=== PATIENT | male | born 1985 | race African-American/Black ===

== ENCOUNTER 2017-01-20 11:39 | Emergency (ER) | payer OTHER ==
--- NOTE | 2017-01-20 12:08 | ER Document Report ---
ED Medical Screen (RME) - General Chief Complaint: Altered Mental Status Stated Complaint: ALTERED MENTAL STATUS Time Seen by Provider: 01/20/17 12:05 Mode of Arrival: Ambulatory Information source: Patient Notes: 31-year-old male history of OCD who is strongly medication last night presents paranoid acting strange I have greeted and performed a rapid initial assessment of this patient. A comprehensive ED assessment and evaluation of the patient, analysis of test results and completion of the medical decision making process will be conducted by additional ED providers. PHYSICAL EXAMINATION: GENERAL: Well-appearing, well-nourished and in no acute distress. HEAD: Atraumatic, normocephalic. EYES: Pupils equal round extraocular movements intact, conjunctiva are normal. ENT: Nares patent NECK: Normal range of motion LUNGS: No respiratory distress Musculoskeletal: Normal range of motion NEUROLOGICAL: Normal speech, normal gait. PSYCH: Very anxious paranoid SKIN: Warm, Dry, normal turgor, no rashes or lesions noted. TRAVEL OUTSIDE OF THE [place] IN LAST 30 DAYS: No - Related Data Allergies/Adverse Reactions: No Known Allergies Allergy (Verified 06/19/14 01:39) Past Medical History - Social History Chew tobacco use (# tins/day): No Frequency of alcohol use: None Drug Abuse: None Pulmonary Medical History: Reports: Hx Asthma Endocrine Medical History: Denies: Hx Diabetes Mellitus Type 1, Hx Diabetes Mellitus Type 2 Renal/ Medical History: Denies: Hx Peritoneal Dialysis Skin Medical History: Reports Hx Cellulitis - From embedded toothpick into his foot Psychiatric Medical History: Reports: Hx Depression Surgical Hx: Negative - Immunizations Immunizations up to date: Yes Hx Diphtheria, Pertussis, Tetanus Vaccination: Yes Physical Exam - Vital signs Vitals: Temp Pulse Resp BP Pulse Ox 98.7 F 74 16 122/75 100 01/20/17 11:52 01/20/17 11:52 01/20/17 11:52 01/20/17 11:52 01/20/17 11:52 Course - Vital Signs Vital signs: Temp Pulse Resp BP Pulse Ox 98.7 F 74 16 122/75 100 01/20/17 11:52 01/20/17 11:52 01/20/17 11:52 01/20/17 11:52 01/20/17 11:52
--- NOTE | 2017-01-20 12:13 | ER Document Report ---
ED General - General Chief Complaint: Altered Mental Status Stated Complaint: ALTERED MENTAL STATUS Time Seen by Provider: 01/20/17 12:05 Mode of Arrival: Ambulatory Information source: Patient Notes: 31-year-old male history of OCD who was started on medication that he took last night presents with complaints of acting strange per his job. Patient is noted to be paranoid and anxious, denies any suicidal ideation TRAVEL OUTSIDE OF THE [place] IN LAST 30 DAYS: No - HPI Onset: Just prior to arrival Onset/Duration: Sudden Quality of pain: No pain Severity: Moderate Pain Level: Denies Associated symptoms: Other Exacerbated by: Denies Relieved by: Denies Similar symptoms previously: No Recently seen / treated by doctor: Yes - Related Data Allergies/Adverse Reactions: No Known Allergies Allergy (Verified 06/19/14 01:39) Home Medications: Current Home Medications Clomipramine HCl [Anafranil 25 mg Capsule] 25 mg PO DAILY 01/20/17 [History] Past Medical History - General Information source: Patient - Social History Smoking Status: Never Smoker Cigarette use (# per day): No Chew tobacco use (# tins/day): No Smoking Education Provided: No Frequency of alcohol use: None Drug Abuse: None Family History: Arthritis, CAD, DM, Hyperlipidemia, Hypertension Patient has suicidal ideation: No Patient has homicidal ideation: No Pulmonary Medical History: Reports: Hx Asthma Endocrine Medical History: Denies: Hx Diabetes Mellitus Type 1, Hx Diabetes Mellitus Type 2 Renal/ Medical History: Denies: Hx Peritoneal Dialysis Skin Medical History: Reports Hx Cellulitis - From embedded toothpick into his foot Psychiatric Medical History: Reports: Hx Depression Surgical Hx: Negative - Immunizations Immunizations up to date: Yes Hx Diphtheria, Pertussis, Tetanus Vaccination: Yes Review of Systems - Review of Systems Notes: REVIEW OF SYSTEMS: CONSTITUTIONAL : Denies fever, chills, or sweats. Denies recent illness. EENT: Denies eye, ear, throat, or mouth pain or symptoms. Denies nasal or sinus congestion or discharge. Denies throat, tongue, or mouth swelling or difficulty swallowing. CARDIOVASCULAR: Denies chest pain. Denies palpitations or racing or irregular heart beat. Denies ankle edema. RESPIRATORY: Denies cough, cold, or chest congestion. Denies shortness of breath, difficulty breathing, or wheezing. GASTROINTESTINAL: Denies abdominal pain or distention. Denies nausea, vomiting , or diarrhea. Denies blood in vomitus, stools, or per rectum. Denies black, tarry stools. Denies constipation. GENITOURINARY: Denies difficulty urinating, painful urination, burning, frequency, blood in urine, or discharge. MUSCULOSKELETAL: Denies back or neck pain or stiffness. Denies joint pain or swelling. SKIN: Denies rash, lesions or sores. HEMATOLOGIC : Denies easy bruising or bleeding. LYMPHATIC: Denies swollen, enlarged glands. NEUROLOGICAL: Denies confusion or altered mental status. Denies passing out or loss of consciousness. Denies dizziness or lightheadedness. Denies headache. Denies weakness or paralysis or loss of use of either side. Denies problems with gait or speech. Denies sensory loss, numbness, or tingling. Denies seizures. PSYCHIATRIC: admits ot paranoia ALL OTHER SYSTEMS REVIEWED AND NEGATIVE. Dictation was performed using [employer] voice recognition software PHYSICAL EXAMINATION: GENERAL: Well-appearing, well-nourished and in no acute distress. HEAD: Atraumatic, normocephalic. EYES: Pupils equal round and reactive to light, extraocular movements intact, sclera anicteric, conjunctiva are normal. ENT: Nares patent, oropharynx clear without exudates. Moist mucous membranes. NECK: Normal range of motion, supple without lymphadenopathy LUNGS: Breath sounds clear to auscultation bilaterally and equal. No wheezes rales or rhonchi. HEART: Regular rate and rhythm without murmurs ABDOMEN: Soft, nontender, nondistended abdomen. No guarding, no rebound. No masses appreciated. Musculoskeletal: Normal range of motion, no pitting or edema. No cyanosis. NEUROLOGICAL: Cranial nerves grossly intact. Normal speech, normal gait. Normal sensory, motor exams PSYCH: pt is quite paranoid, suspicious of my questions SKIN: Warm, Dry, normal turgor, no rashes or lesions noted. Physical Exam - Vital signs Vitals: Temp Pulse Resp BP Pulse Ox 98.7 F 74 16 122/75 100 01/20/17 11:52 01/20/17 11:52 01/20/17 11:52 01/20/17 11:52 01/20/17 11:52 Course - Re-evaluation Re-evalutation: 01/20/17 12:13 psychiatric workup is pending at this time 01/20/17 19:41 Patient will be kept for mental health evaluation lab work was normal Patient is medically cleared - Vital Signs Vital signs: Temp Pulse Resp BP Pulse Ox 98.0 F 70 16 120/72 100 01/20/17 13:00 01/20/17 13:00 01/20/17 13:00 01/20/17 13:00 01/20/17 13:00 - Laboratory Result Diagrams: 01/20/17 12:18 01/20/17 12:18 Laboratory results interpreted by me: 01/20/17 01/20/17 12:18 12:18 RBC 6.28 H MCV 69 L MCH 22.0 L MCHC 31.9 L RDW 16.2 H Calcium 10.5 H Total Protein 8.5 H Salicylates < 1.0 L Acetaminophen < 10 L Discharge - Discharge Clinical Impression: Paranoia Condition: Stable Disposition: PSYCH HOSP/UNIT
[2017-01-20 12:51] LABS: ABSOLUTE BASOPHILS # (AUTO) 0.1 10^3/uL (0.0-0.2); ABSOLUTE LYMPHOCYTES (AUTO) 1.1 10^3/uL (0.5-4.7); ABSOLUTE MONOCYTES (AUTO) 0.4 10^3/uL (0.1-1.4); ABSOLUTE NEUT (AUTO) 4.6 10^3/uL (1.7-8.2); BASOPHILS % (AUTO) 1.2 % (0-2); EOSINOPHILS % (AUTO) 0.8 % (0-6); HEMATOCRIT 43.3 % (37.9-51.0); HEMOGLOBIN 13.8 g/dL (13.5-17.0); HGB HCT DIFFERENCE -1.9; LYMPHOCYTES % (AUTO) 18.2 % (13-45); MEAN CORPUSCULAR HGB CONC 31.9 g/dL (32.0-36.0); MEAN CORPUSCULAR VOLUME 69 fl (80-97); MONOCYTES % (AUTO) 6.6 % (3-13); RED BLOOD COUNT 6.28 10^6/uL (4.35-5.55); RED CELL DISTRIBUTION WIDTH 16.2 % (11.5-14.0); SEGMENTED NEUTROPHILS % (AUTO) 73.2 % (42-78); WHITE BLOOD COUNT 6.3 10^3/uL (4.0-10.5)
[2017-01-20 12:59] LABS: APPEARANCE,URINE CLEAR; BILIRUBIN,URINE NEGATIVE (NEGATIVE); GLUCOSE, URINE NEGATIVE (NEGATIVE); KETONES,URINE NEGATIVE (NEGATIVE); LEUKOCYTE ESTERASE,URINE NEGATIVE (NEGATIVE); NITRITE,URINE NEGATIVE (NEGATIVE); PROTEIN,URINE NEGATIVE (NEGATIVE); URINE SPECIFIC GRAVITY 1.019; UROBILINOGEN,URINE NEGATIVE mg/dL (<2.0)
[2017-01-20 13:17] LABS: URINE BARBITURATES SCREEN NEGATIVE; URINE METHADONE SCREEN NEGATIVE; URINE OPIATES LOW NEGATIVE; URINE PHENCYCLIDINE SCREEN NEGATIVE
[2017-01-20 13:18] LABS: ALANINE AMINOTRANSFERASE 34 U/L (21-72); ALBUMIN 4.9 g/dL (3.5-5.0); ALKALINE PHOSPHATASE 55 U/L (38-126); ANION GAP 14 (5-19); ASPARTATE AMINO TRANSFERASE 28 U/L (17-59); BILIRUBIN,DIRECT 0.4 mg/dL (0.0-0.4); BILIRUBIN,TOTAL 0.6 mg/dL (0.2-1.3); BLOOD UREA NITROGEN 13 mg/dL (7-20); CALCIUM 10.5 mg/dL (8.4-10.2); CARBON DIOXIDE 25 mmol/L (22-30); CHLORIDE 102 mmol/L (98-107); CREATININE RESULT 0.98 mg/dL (0.52-1.25); GLUCOSE 96 mg/dL (75-110); POTASSIUM 4.9 mmol/L (3.6-5.0); SODIUM 140.7 mmol/L (137-145); TOTAL PROTEIN 8.5 g/dL (6.3-8.2)
[2017-01-20 13:21] LABS: ALCOHOL < 10 mg/dL (NONE DETECTED)
--- NOTE | 2017-01-20 21:34 | EKG REPORT ---
SEVERITY:- NORMAL ECG - SINUS RHYTHM : Confirmed by: Roselyn Nava 20-Jan-2017 21:33:28
--- NOTE | 2017-01-21 09:33 | ER Document Report ---
Doctor's Note Notes: 01/21/17 09:32 31-year-old male with supposedly a past medical history of obsessive-compulsive disorder who supposedly started a recent new medication and was noticed by coworkers to be acting "strange". He was supposedly paranoid and anxious. Patient denied any suicidal or homicidal ideations. Labs and vital signs are unremarkable. Patient is oriented 4. He denies any suicidal or homicidal ideations. He denies any auditory or visual hallucinations. Awaiting psychiatric consultation. 01/21/17 10:56 Psychiatry has seen and evaluated the patient. They do not believe that the patient is a risk to himself or others. Their expert opinion and to discharge the patient home at this time. Patient will stop taking the new medication, Anafranil. He has an appointment tomorrow with his psychiatric provider. Patient currently denies any auditory or visual hallucinations. He states he feels very comfortable going home at this time. He denies any suicidal or homicidal ideations. Patient will be discharged home with strict return precautions and follow-up tomorrow with the scheduled provider.
--- NOTE | 2017-01-21 10:18 | ER Document Report ---
Addendum entered and electronically signed by AIME RAHMAN LCSWA 01/21/17 10: 20: Discharge - Discharge Clinical Impression: Paranoia Adverse drug effect Qualifiers: Encounter type: initial encounter Qualified Code(s): T88.7XXA - Unspecified adverse effect of drug or medicament, initial encounter Condition: Stable Disposition: HOME, SELF-CARE Additional Instructions: Please follow up with your mental health provider, [facility], 01/22/2017 at 8:50am. AT ANY TIME, IF YOUR SYMPTOMS CHANGE SIGNIFICANTLY OR WORSEN OR YOU DEVELOP NEW SYMPTOMS, RETURN TO THE EMERGENCY DEPARTMENT IMMEDIATELY FOR RE-EVALUATION. OUR GOAL IS TO PROVIDE EXCELLENT MEDICAL CARE! WE HOPE THAT WE HAVE MET YOUR EXPECTATIONS DURING YOUR EMERGENCY DEPARTMENT VISIT AND THAT YOU FEEL YOU HAVE RECEIVED EXCELLENT CARE! Referrals: [facility] [Provider Group] - 01/22/17 8:50 am Original Note: ED Psych Disorder / Suicide - General Mode of Arrival: Ambulatory TRAVEL OUTSIDE OF THE [place] IN LAST 30 DAYS: No <AIME RAHMAN - Last Filed: 01/21/17 10:18> <SIMBA RODRIGUEZ - Last Filed: 01/21/17 10:58> - General Chief Complaint: Altered Mental Status Stated Complaint: ALTERED MENTAL STATUS Time Seen by Provider: 01/20/17 12:05 - HPI Notes: Patient presented to [facility] ED with concerns of possible mediation reaction. Patient is seen at [facility] for OCD and depression; "I have a fear of holes... well more of a disgust." Patient disclosed the onset was approximately 2-3 months ago; however, he does confirm it started after he watched something on the Internet about Trypophobia. " I am disgusted by them, but I feel the need to look it up on the internet." He was prescribed Anafranil. Patient disclosed that originally he was dizzy the day after starting. He states that the next morning he was "sick as a dog." He still attempted to go to work and stated that the symptoms seem to gradually get worse while at work including "staring into space, confusion, and paranoia." Patient disclosed he was apprised it lasted almost 48 hours after taking only 2 doses of medication. Patient states that he no longer has those feelings or physical symptoms of dizziness or illness. Patient disclosed that he does have an appointment on Tuesday at 5 PM for behavioral therapy. Patient continues state that he will never take that medication again. Patient is alert and orientated to person, place, time and circumstance. Mood is euthymic with congruent affect. Patient denies suicidal and homicidal ideation. Patient denies auditory and visual hallucinations. Delusions were absent and behaviors congruent with intact reality based presentation (i.e. organized, linear, rational thinking). Eye contact was well-maintained conversational speech was within normal rate tone and prosody. Attention and concentration were good. Intellectual abilities appear to be within the average range. Insight, judgment, impulse control appear to be good. 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 Patient does not meet IVC criteria per [place] GS 122C. Patient denies suicidal and homicidal ideation. Delusions were absent and behaviors congruent with intact reality based presentation (i.e. organized, linear, rational thinking). Patient is recommended to follow-up with his mental health outpatient provider, [facility], 01/22/2017 at 8:[address] Green was consulted on the care care and management of this patient; attending physician is in agreement with recommendations and disposition. (AIME RAHMAN) - Related Data Allergies/Adverse Reactions: No Known Allergies Allergy (Verified 06/19/14 01:39) Home Medications: Current Home Medications Clomipramine HCl [Anafranil 25 mg Capsule] 25 mg PO DAILY 01/20/17 [History] Past Medical History - General Information source: Patient - Social History Smoking Status: Never Smoker Cigarette use (# per day): No Chew tobacco use (# tins/day): No Frequency of alcohol use: None Drug Abuse: None Family History: Arthritis, CAD, DM, Hyperlipidemia, Hypertension Patient has suicidal ideation: No Patient has homicidal ideation: No Pulmonary Medical History: Reports: Hx Asthma Endocrine Medical History: Denies: Hx Diabetes Mellitus Type 1, Hx Diabetes Mellitus Type 2 Renal/ Medical History: Denies: Hx Peritoneal Dialysis Skin Medical History: Reports Hx Cellulitis - From embedded toothpick into his foot Psychiatric Medical History: Reports: Hx Depression Surgical Hx: Negative - Immunizations Immunizations up to date: Yes Hx Diphtheria, Pertussis, Tetanus Vaccination: Yes <AIME RAHMAN - Last Filed: 01/21/17 10:18> - Vital signs Vitals: Temp Pulse Resp BP Pulse Ox 98.7 F 74 16 122/75 100 01/20/17 11:52 01/20/17 11:52 01/20/17 11:52 01/20/17 11:52 01/20/17 11:52 Course - Laboratory Result Diagrams: 01/20/17 12:18 01/20/17 12:18 <AIME RAHMAN - Last Filed: 01/21/17 10:18> - Laboratory Result Diagrams: 01/20/17 12:18 01/20/17 12:18 <SIMBA RODRIGUEZ - Last Filed: 01/21/17 10:58> - Vital Signs Vital signs: Temp Pulse Resp BP Pulse Ox 97.8 F 75 16 124/76 97 01/21/17 06:52 01/21/17 06:52 01/20/17 13:00 01/21/17 06:52 01/21/17 06:52 - Laboratory Laboratory results interpreted by me: 01/20/17 01/20/17 12:18 12:18 RBC 6.28 H MCV 69 L MCH 22.0 L MCHC 31.9 L RDW 16.2 H Calcium 10.5 H Total Protein 8.5 H Salicylates < 1.0 L Acetaminophen < 10 L Discharge <AIME RAHMAN - Last Filed: 01/21/17 10:18> <SIMBA RODRIGUEZ - Last Filed: 01/21/17 10:58> - Discharge Clinical Impression: Paranoia Adverse drug effect Qualifiers: Encounter type: initial encounter Qualified Code(s): T88.7XXA - Unspecified adverse effect of drug or medicament, initial encounter Condition: Stable Disposition: HOME, SELF-CARE Additional Instructions: Please follow up with your mental health provider, [facility], 01/22/2017 at 8:50am. AT ANY TIME, IF YOUR SYMPTOMS CHANGE SIGNIFICANTLY OR WORSEN OR YOU DEVELOP NEW SYMPTOMS, RETURN TO THE EMERGENCY DEPARTMENT IMMEDIATELY FOR RE-EVALUATION. OUR GOAL IS TO PROVIDE EXCELLENT MEDICAL CARE! WE HOPE THAT WE HAVE MET YOUR EXPECTATIONS DURING YOUR EMERGENCY DEPARTMENT VISIT AND THAT YOU FEEL YOU HAVE RECEIVED EXCELLENT CARE! Referrals: [facility] [Provider Group] - 01/22/17 8:50 am
[2017-01-21] MEDS ORDERED: IBUPROFEN 600 MG TABLET PO ONE (11:03)
[2017-01-21 11:14] VITALS: BP 121/77
== END 2017-01-21 11:15 | disposition home or self-care (01) ==
LOC: ER 11:39
DX: F22 Delusional disorders (principal); T88.7XXA Unspecified adverse effect of drug or medicament, initial encounter; R41.82 Altered mental status, unspecified
CPT/HCPCS: 36415; 80053; 80307; 81001; 85025; 93005; 93010; 99285

== ENCOUNTER 2017-03-10 17:47 | Emergency (ER) | payer OTHER ==
[2017-03-10 18:12] VITALS: BP 119/73
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
--- NOTE | 2017-03-10 19:34 | RADIOLOGY REPORT (SQ) ---
EXAM DESCRIPTION: SHOULDER RIGHT 2 OR MORE VIEWS COMPLETED DATE/TIME: 03/10/2017 7:15 pm REASON FOR STUDY: pain and injury COMPARISON: None. NUMBER OF VIEWS: Three views. TECHNIQUE: Internal rotation, external rotation, and Y view images acquired of the right shoulder. LIMITATIONS: None. FINDINGS: MINERALIZATION: Normal. BONES: No acute fracture or dislocation. No worrisome bone lesions. JOINTS: No dislocation. VISUALIZED LUNGS AND RIBS: No pneumothorax. No rib fracture. SOFT TISSUES: No radiopaque foreign body. OTHER: No other significant finding. IMPRESSION: NO RADIOGRAPHIC EVIDENCE OF ACUTE INJURY. TECHNICAL DOCUMENTATION: JOB ID: [id number] [employer]- All Rights Reserved
== END 2017-03-10 20:03 | disposition home or self-care (01) ==
LOC: ER 17:47
DX: S49.91XA Unspecified injury of right shoulder and upper arm, initial encounter (principal); X50.0XXA Overexertion from strenuous movement or load, initial encounter; Y99.0 Civilian activity done for income or pay; M25.511 Pain in right shoulder; J45.909 Unspecified asthma, uncomplicated
CPT/HCPCS: 99283

== ENCOUNTER 2017-06-13 18:56 | Emergency (ER) | payer OTHER ==
[2017-06-13 19:03] VITALS: BP 128/72
[2017-06-13] MEDS ORDERED: ACETAMINOPHEN 325 MG TABLET PO ONE (19:24)
--- NOTE | 2017-06-13 19:31 | ER Document Report ---
ED General - General Chief Complaint: Hand Pain Stated Complaint: RIGHT FINGER INJURY Time Seen by Provider: 06/13/17 19:19 Mode of Arrival: Ambulatory Information source: Patient TRAVEL OUTSIDE OF THE [place] IN LAST 30 DAYS: No - HPI Notes: A 2-year-old male presents with complaints of right hand pain and third phalanges pain after he was lifting a heavy object today. Unsure if he dislocated his joints are not in his third phalanges at the PIP. reports pain is 4/10, achy. no otc medications have been tried. worse with movement. better at rest. denies any n/t in hand or finger. denies hitting head, denies loc, denies hx of previous injury. Denies any chest pain, shortness of breath, nausea , vomiting, blurred vision, double vision, loss of vision, trauma pain, dysuria hematuria. - Related Data Allergies/Adverse Reactions: No Known Allergies Allergy (Verified 03/10/17 18:08) Past Medical History - General Information source: Patient - Social History Smoking Status: Unknown if Ever Smoked Family History: Arthritis, CAD, DM, Hyperlipidemia, Hypertension Pulmonary Medical History: Reports: Hx Asthma Endocrine Medical History: Denies: Hx Diabetes Mellitus Type 1, Hx Diabetes Mellitus Type 2 Renal/ Medical History: Denies: Hx Peritoneal Dialysis Skin Medical History: Reports Hx Cellulitis - From embedded toothpick into his foot Psychiatric Medical History: Reports: Hx Anxiety, Hx Depression, Hx Obsessive Compulsive Disorder Denies: Hx Attention Deficit Hyperactivity Disorder - ADD Past Surgical History: Reports: Hx Orthopedic Surgery - toothpick removed from rt foot, Other - Removed toothpick from foot - Immunizations Immunizations up to date: Yes Hx Diphtheria, Pertussis, Tetanus Vaccination: Yes Review of Systems - Review of Systems Constitutional: No symptoms reported EENT: No symptoms reported Cardiovascular: No symptoms reported Respiratory: No symptoms reported Gastrointestinal: No symptoms reported Genitourinary: No symptoms reported Male Genitourinary: No symptoms reported Musculoskeletal: See HPI Skin: No symptoms reported Hematologic/Lymphatic: No symptoms reported Neurological/Psychological: No symptoms reported Physical Exam - Vital signs Vitals: Temp Pulse Resp BP Pulse Ox 98.2 F 72 14 128/72 H 99 06/13/17 19:01 06/13/17 19:01 06/13/17 19:01 06/13/17 19:06/13/17 19:01 Interpretation: Normal - Notes Notes: PHYSICAL EXAMINATION: GENERAL: Well-appearing, well-nourished and in no acute distress. HEAD: Atraumatic, normocephalic. EYES: Pupils equal round and reactive to light, extraocular movements intact, sclera anicteric, conjunctiva are normal. ENT: Nares patent, oropharynx clear without exudates. Moist mucous membranes. NECK: Normal range of motion, supple without lymphadenopathy LUNGS: Breath sounds clear to auscultation bilaterally and equal. No wheezes rales or rhonchi. HEART: Regular rate and rhythm without murmurs ABDOMEN: Soft, nontender, nondistended abdomen. No guarding, no rebound. No masses appreciated. Musculoskeletal: Normal range of motion, no pitting or edema. No cyanosis. Tenderness along third metacarpal joint to PIP. No noted deformity. Card Setter + 2 BUE equally. radial pulses + 2 BUE equally. Full motor and sensory function in bilaterally hands and fingers. Noted normal opposition, adduction, abduction, flexion and extension of all fingers on both hands equally. Snuffbox tenderness negative noted bilaterally. Negative kanavels sign bilaterally. Cap refill < 3 seconds normal medial, radial and ulnar nerve. No vascular compromise NEUROLOGICAL: Cranial nerves grossly intact. Normal speech, normal gait. Normal sensory, motor exams PSYCH: Normal mood, normal affect. SKIN: Warm, Dry, normal turgor, no rashes or lesions noted. Course - Re-evaluation Re-evalutation: 06/13/17 19:28 We will give patient Tylenol for pain and will obtain an x-ray. Patient agreed with plan of care. 1950-.Rechecked the patient who is resting comfortably. On re-exam, patient is symptomatically improved. Discussed the results of the radiology as well as the diagnosis at great length. Right hand x-ray negative for any acute finding at this time. Will place patient in aluminum finger splint. Discussed the need to return to the ER for any new or worsening sx. Patient understands to take the Rx as directed. All questions answered. Patient comfortable with the decision to go home. advised to return to the ER if any signs or symptoms became worse. Take over- the-counter Motrin and Tylenol as needed for any fevers or pain. Follow up with primary care within 1-2 days. All questions and concerns answered by this provider. Patient/family states would follow plan of care and agreed to plan of care. Patient was discharged home and off unit without incident. Please excuse any errors in this document was done by dragon dictation. 5 - Vital Signs Vital signs: Temp Pulse Resp BP Pulse Ox 98.2 F 72 14 128/72 H 99 06/13/17 19:01 06/13/17 19:01 06/13/17 19:01 06/13/17 19:01 06/13/17 19:01 Discharge - Discharge Clinical Impression: Finger sprain Qualifiers: Encounter type: initial encounter Finger: middle finger Sprain of finger site: interphalangeal joint Laterality: right Qualified Code(s): S63.632A - Sprain of interphalangeal joint of right middle finger, initial encounter Condition: Good Disposition: HOME, SELF-CARE Instructions: Sprained Finger (OM) Additional Instructions: Follow-Up Care Although no definite follow-up visit has been scheduled for you, you should return if there is unexpected worsening or a significant change in your symptoms. Sprained Finger You have a finger sprain. A sprain is an over-stretching or tearing of the ligaments which guard the joints. The injury may require a few weeks of protection while it heals. The usual treatment for a finger sprain is a splint, ice packs, and elevation. As pain and swelling decrease, cautious use of the finger is allowed. Often the injured finger is taped to an uninjured finger to provide a "moving splint" during the later healing. Complete recovery takes about three or four weeks. Your physician has assessed the seriousness of the ligament injury in your finger, and has outlined the initial treatment plan. Understand that this treatment may change, depending on how your finger progresses. If further exams were recommended, it is important that you follow up as instructed. Call the doctor at any time if there is severe pain, increasing swelling, or numbness in the finger. Please follow up with the [facility] [address] [address] Return immediately for any new or worsening symptoms. Follow up with primary care provider, call tomorrow to make followup appointment. Prescriptions: Meloxicam 7.5 mg PO DAILY #7 tablet Forms: Return to Work Referrals: SABINE MCDONOUGH DO [ACTIVE STAFF] - Follow up as needed DELFINO RIOS MD [COMMUNITY BASED STAFF] - Follow up as needed
--- NOTE | 2017-06-13 19:48 | RADIOLOGY REPORT (SQ) ---
EXAM DESCRIPTION: HAND RIGHT 3 VIEWS COMPLETED DATE/TIME: 06/13/2017 7:38 pm REASON FOR STUDY: 3rd phalange pain and palmar pain COMPARISON: None. EXAM PARAMETERS: NUMBER OF VIEWS: Three views. TECHNIQUE: AP, lateral and oblique radiographic images acquired of the right hand. LIMITATIONS: None. FINDINGS: MINERALIZATION: Normal. BONES: No acute fracture or dislocation. No worrisome bone lesions. JOINTS: No effusions. SOFT TISSUES: No soft tissue swelling. No foreign body. OTHER: No other significant finding. IMPRESSION: NEGATIVE STUDY OF THE RIGHT HAND. NO RADIOGRAPHIC EVIDENCE OF ACUTE INJURY. TECHNICAL DOCUMENTATION: JOB ID: [id number] [employer]- All Rights Reserved
== END 2017-06-13 20:48 | disposition home or self-care (01) ==
LOC: ER 18:56
DX: S63.632A Sprain of interphalangeal joint of right middle finger, initial encounter (principal); X50.0XXA Overexertion from strenuous movement or load, initial encounter; J45.909 Unspecified asthma, uncomplicated
CPT/HCPCS: 99283

== ENCOUNTER 2018-03-05 21:30 | Emergency (ER) | payer OTHER ==
[2018-03-05 22:04] VITALS: BP 143/85
[2018-03-05] MEDS ORDERED: IBUPROFEN 600 MG TABLET PO ONE (23:25)
[2018-03-05] MEDS ORDERED: ACETAMINOPHEN 325 MG TABLET PO ONE (23:25)
[2018-03-05] MEDS ORDERED: CLINDAMYCIN HCL 150 MG CAPSULE PO ONE (23:25)
--- NOTE | 2018-03-05 23:26 | ER Document Report ---
ED General - General Chief Complaint: Toothache Stated Complaint: TOOTHACHE Time Seen by Provider: 03/05/18 22:45 Notes: Patient is a 32-year-old male who presents with complaints of dental pain. Patient states that he is scheduled to have a root canal on tooth #19 but given his worsening pain his dentist requested that he come to the emergency department to be started on antibiotics. The patient denies any significant facial swelling, difficulty swallowing, fever or constitutional symptoms. He states this feels similar to when he had dental infections in the past. He has not had fever. He describes the pain as a constant, aching, throbbing pain. Nothing improves or worsens his pain. TRAVEL OUTSIDE OF THE [place] IN LAST 30 DAYS: No - Related Data Allergies/Adverse Reactions: No Known Allergies Allergy (Verified 03/10/17 18:08) Past Medical History - General Information source: Patient - Social History Smoking Status: Never Smoker Frequency of alcohol use: None Drug Abuse: None Lives with: Spouse/Significant other Family History: Arthritis, CAD, DM, Hyperlipidemia, Hypertension Patient has suicidal ideation: No Patient has homicidal ideation: No Pulmonary Medical History: Reports: Hx Asthma Endocrine Medical History: Denies: Hx Diabetes Mellitus Type 1, Hx Diabetes Mellitus Type 2 Renal/ Medical History: Denies: Hx Peritoneal Dialysis Skin Medical History: Reports Hx Cellulitis - From embedded toothpick into his foot Psychiatric Medical History: Reports: Hx Anxiety, Hx Depression, Hx Obsessive Compulsive Disorder Comment Only: Hx Attention Deficit Hyperactivity Disorder - ADD Past Surgical History: Reports: Hx Orthopedic Surgery - toothpick removed from rt foot, Other - Removed toothpick from foot - Immunizations Immunizations up to date: Yes Hx Diphtheria, Pertussis, Tetanus Vaccination: Yes Review of Systems - Review of Systems Notes: Constitutional: Negative for fever. HENT: Positive for dental pain Eyes: Negative for visual changes. Cardiovascular: Negative for chest pain. Respiratory: Negative for shortness of breath. Gastrointestinal: Negative for abdominal pain, vomiting or diarrhea. Genitourinary: Negative for dysuria. Musculoskeletal: Negative for back pain. Skin: Negative for rash. Neurological: Negative for headaches, weakness or numbness. 10 point ROS negative except as marked above and in HPI. Physical Exam - Vital signs Vitals: Temp Pulse Resp BP Pulse Ox 98.6 F 80 19 143/85 H 98 03/05/18 22:03 03/05/18 22:03 03/05/18 22:03 03/05/18 22:03 03/05/18 22:03 Interpretation: Normal Notes: PHYSICAL EXAMINATION: GENERAL: Well-appearing, well-nourished and in no acute distress. HEAD: Atraumatic, normocephalic. EYES: sclera anicteric, conjunctiva are normal. ENT: Moist mucous membranes. NECK: Normal range of motion LUNGS: Normal work of breathing HEART: 2+ radial pulses bilaterally EXTREMITIES: no pitting or edema. No cyanosis. NEUROLOGICAL: No focal neurological deficits. Moves all extremities spontaneously and on command. PSYCH: Normal mood, normal affect. SKIN: Warm, Dry, normal turgor, no rashes or lesions noted. Course - Re-evaluation Re-evalutation: 03/05/18 23:26 Presentation is most consistent with likely an infected tooth. Airway is patent. Vitals within normal limits. Patient is able swallow without any difficulty. There is no significant facial swelling. No evidence of Carlos angina, apical abscess, or airway obstruction. Patient will be started on antibiotics. I've instructed to follow-up with dentistry as earliest ability for definitive management. At this time will discharge with return precautions and follow-up recommendations. Verbal discharge instructions given a the bedside and opportunity for questions given. Medication warnings reviewed. Patient is in agreement with this plan and has verbalized understanding of return precautions and the need for primary care follow-up in the next 24-72 hours. - Vital Signs Vital signs: Temp Pulse Resp BP Pulse Ox 98.6 F 80 19 143/85 H 98 03/05/18 22:03 03/05/18 22:03 03/05/18 22:03 03/05/18 22:03 03/05/18 22:03 Discharge - Discharge Clinical Impression: Pain, dental Condition: Good Disposition: HOME, SELF-CARE Additional Instructions: You have been seen for dental pain. It is very important that you follow-up with a dentist for definitive care. Please return if you develop fever greater than 101, swelling in your face, vomiting, difficulty breathing or swallowing, or any other symptoms that are concerning to you. For your pain: Take ibuprofen 600 mg and acetaminophen 1000 mg every 6 hours together as needed for pain. Prescriptions: Clindamycin HCl 300 mg PO TID #30 capsule
== END 2018-03-05 23:49 | disposition home or self-care (01) ==
LOC: ER 21:30
DX: K08.9 Disorder of teeth and supporting structures, unspecified (principal)
CPT/HCPCS: 99282

== ENCOUNTER 2018-05-17 11:55 | Emergency (ER) | payer OTHER ==
[2018-05-17] MEDS ORDERED: KETOROLAC TROMETHAMINE 60 MG/2 ML SDV IM ONE (13:00)
[2018-05-17] MEDS ORDERED: DEXAMETHASONE 4 MG TABLET PO ONE (13:00)
[2018-05-17] MEDS ORDERED: LIDOCAINE 5% (700 MG) TRANSDERMAL ADH..PATCH TP ONE (13:01)
--- NOTE | 2018-05-17 13:01 | ER Document Report ---
ED Neck/Back Problem - General Chief Complaint: Back Pain Stated Complaint: BACK PAIN Time Seen by Provider: 05/17/18 12:39 Mode of Arrival: Ambulatory Information source: Patient Notes: 32-year-old male presented to ED for complaint of low back pain. The pain is on the right side of his lower back going down his right leg. He states he has a history of chronic low back pain. He is thinks he might have injured his back again lifting stuff at work. Patient is alert and oriented respirations regular and unlabored speaking in full sentences walks with a even steady gait. Patient denies any loss of control of bowel or bladder, any saddle anesthesia, any loss of control of lower extremities or loss of motion to lower extremities. TRAVEL OUTSIDE OF THE [place] IN LAST 30 DAYS: No - HPI Patient complains to provider of: Pain, Lower back Onset: Other - 3-4 days. Where: Work Onset: Chronic Timing: Still present Quality of pain: Sharp Severity: Moderate Pain Level: 3 Context: Bending, Lifting Recent injury: Possibly Associated symptoms: Like prior neck/back pain, Radiation to leg, Lower back pain. denies: Motor loss, Numbness/tingling, Radiation to arm, Radiation to chest, Sensory loss, Unable to urinate Exacerbated by: Movement of trunk Relieved by: Nothing Similar symptoms previously: Yes Recently seen / treated by doctor: No - Related Data Allergies/Adverse Reactions: No Known Allergies Allergy (Verified 05/17/18 11:57) Past Medical History - General Information source: Patient - Social History Smoking Status: Never Smoker Cigarette use (# per day): No Chew tobacco use (# tins/day): No Smoking Education Provided: No Frequency of alcohol use: Rare Drug Abuse: None Occupation: Maintenance on [employer] Lives with: Family Family History: Arthritis, CAD, DM, Hyperlipidemia, Hypertension Patient has suicidal ideation: No Patient has homicidal ideation: No - Past Medical History Cardiac Medical History: Reports: None Pulmonary Medical History: Reports: Hx Asthma EENT Medical History: Reports: None Neurological Medical History: Reports: None Endocrine Medical History: Reports: None Renal/ Medical History: Reports: None Malignancy Medical History: Reports None GI Medical History: Reports: None Musculoskeletal Medical History: Reports Hx Arthritis, Reports Hx Musculoskeletal Trauma Skin Medical History: Reports Hx Cellulitis - From embedded toothpick into his foot Psychiatric Medical History: Reports: Hx Anxiety, Hx Depression, Hx Obsessive Compulsive Disorder Comment Only: Hx Attention Deficit Hyperactivity Disorder - ADD Traumatic Medical History: Reports: None Infectious Medical History: Reports: None Past Surgical History: Reports: Hx Orthopedic Surgery - toothpick removed from rt foot - Immunizations Immunizations up to date: Yes Hx Diphtheria, Pertussis, Tetanus Vaccination: Yes Review of Systems - Review of Systems Constitutional: No symptoms reported EENT: No symptoms reported Cardiovascular: No symptoms reported Respiratory: No symptoms reported Gastrointestinal: No symptoms reported Genitourinary: No symptoms reported Male Genitourinary: No symptoms reported Musculoskeletal: Back pain - Radiates to right buttocks down right leg Skin: No symptoms reported Hematologic/Lymphatic: No symptoms reported Neurological/Psychological: Numbness, Tingling -: Yes All other systems reviewed and negative Physical Exam - Vital signs Vitals: Temp Pulse Resp BP Pulse Ox 98.4 F 66 16 118/76 100 05/17/18 12:11 05/17/18 12:11 05/17/18 12:11 05/17/18 12:11 05/17/18 12:11 Interpretation: Normal - General General appearance: Appears well, Alert General appearance pediatric: Attentiveness normal, Good eye contact - HEENT Head: Normocephalic, Atraumatic Eyes: Normal Pupils: PERRL - Respiratory Respiratory status: No respiratory distress Chest status: Nontender Breath sounds: Normal Chest palpation: Normal - Cardiovascular Rhythm: Regular Heart sounds: Normal auscultation Murmur: No - Abdominal Inspection: Normal Distension: No distension Bowel sounds: Normal Tenderness: Nontender Organomegaly: No organomegaly - Back Back: Normal, Tender - Across the right buttocks, Vertebra tenderness - Lumbar area - Extremities General upper extremity: Normal inspection, Nontender, Normal color, Normal ROM, Normal temperature General lower extremity: Normal inspection, Nontender, Normal color, Normal ROM, Normal temperature, Normal weight bearing. No: Amrit's sign - Neurological Neuro grossly intact: Yes Cognition: Normal Orientation: AAOx4 [place] Coma Scale Eye Opening: Spontaneous [place] Coma Scale Verbal: Oriented [place] Coma Scale Motor: Obeys Commands Ped [place] Coma Scale Eye Opening: Spontaneous Ped [place] Coma Scale Verbal: Age appropriate verbal Ped [place] Coma Scale Motor: Spontaneous Movements Speech: Normal Motor strength normal: LUE, RUE, LLE, RLE Sensory: Normal - Psychological Associated symptoms: Normal affect, Normal mood - Skin Skin Temperature: Warm Skin Moisture: Dry Skin Color: Normal Course - Re-evaluation Re-evalutation: 05/17/18 22:18 After performing a Medical Screening Examination, I estimate there is LOW risk for EXPANDING OR RUPTURED ABDOMINAL AORTIC ANEURYSM, CAUDA EQUINA SYNDROME, EPIDURAL MASS LESION, or HERNIATED DISK CAUSING SEVERE SPINAL STENOSIS, thus I consider the discharge disposition reasonable. I have reevaluated this patient multiple times and no significant life threatening changes are noted. The patient and I have discussed the diagnosis and risks, and we agree with discharging home and close follow-up. We also discussed returning to the Emergency Department immediately if new or worsening symptoms occur with the understanding that symptoms and presentations can change. We have discussed the symptoms which are most concerning (e.g., saddle anesthesia, urinary or bowel i ncontinence or retention, changing or worsening pain) that necessitate immediate return. Patient was treated with Toradol and Decadron in the emergency room and also discharged home with prescription for the albuterol - Vital Signs Vital signs: Temp Pulse Resp BP Pulse Ox 97.9 F 54 L 18 125/83 100 05/17/18 14:57 05/17/18 14:57 05/17/18 14:57 05/17/18 14:57 05/17/18 14:57 - Diagnostic Test Radiology reviewed: Image reviewed, Reports reviewed Discharge - Discharge Clinical Impression: Low back pain Qualifiers: Chronicity: acute Back pain laterality: right Sciatica presence: with sciatica Sciatica laterality: sciatica of right side Qualified Code(s): M54.41 - Lumbago with sciatica, right side Condition: Stable Disposition: HOME, SELF-CARE Instructions: Family Physicians / Practices Additional Instructions: LOW BACK PAIN: Three out of every four people will have an episode of disabling back pain during their lifetime. Most commonly the pain is due to straining of the muscles and ligaments in the low back. Usual treatment includes: (1) Rest on a firm surface. Avoid lying on your stomach. (2) Ice pack the painful area. After a few days, gentle heat may be used intermittently to relax the area, or ice packs can be continued. (3) Medication may be needed -- muscle relaxers and antiinflammatory medicines are commonly used. (4) As the back improves, exercises are prescribed to strengthen the back and abdominal muscles. Your doctor will advise you on the proper care for your back at each stage in your recovery. You may be better in a few days -- or healing may take several weeks. If new symptoms of a "herniated disc" (radiation of pain, numbness, or tingling down the back of the leg or weakness in the leg) occur, you should be re-examined. Further testing may be necessary. MUSCLE RELAXERS: Muscle relaxing medications are usually prescribed for acute muscle spasm or injury to the neck and back. They are often combined with antiinflammatory pain medication for increased relief. You may stop the muscle relaxer when the pain and stiffness have improved. Start the medication again if spasms recur. Muscle relaxers may cause drowsiness, especially with the first dose. Do not operate machinery or drive while under the effects of the medication. Most muscle relaxers last up to 24 hours. Do not combine the medication with alcohol. ICE PACKS: Apply ice packs frequently against the painful area. Many different schedules are recommended, such as "20 minutes on, 20 minutes off" or "one hour ice, two hours rest." If you need to work, you may need to go longer between ice treatments. You should plan to have the area ice packed AT LEAST one fourth of the time. The ice should be applied over the wrap, tape, or splint, or over a layer of cloth -- not directly against the skin. Some ice bags have a built-in cloth and can be put directly on the skin. WARM PACKS: After approximately two days, apply gentle heat (such as a heating pad or hot water bottle) for about 20 to 30 minutes about every two hours -- at least four times daily. Warmth and elevation will help you make a more rapid recovery, and will ease the pain considerably. Do not use HOT heat, and never apply heat for longer than 30 minutes. The continuous heat can invisibly damage skin and muscles -- even when no burn is seen on the surface. Damaged muscles can make you MORE sore. Stretching Exercises for the Back The physician has recommended that you begin stretching exercises for your back. These are often used even while the back is painful. However, you should notify the physician if the activities seem to increase your pain. PELVIC TILT: Lie flat on your back with knees bent. Tighten your stomach and buttock muscles so it flattens your lower back against the floor. Hold 10 seconds. Repeat 10 times, twice daily. KNEE RAISE: Lying on the back with knees bent, raise one knee to your chest, then the other. Hold both knees against the chest 10 seconds, then lower one knee at a time. Repeat 10 times, twice daily. PARTIAL TRUNK RAISE: Lie face down, arms at your sides. Keeping your waist on the floor, use your arms raise your chest up. Support yourself on your elbows for 30 seconds. Repeat twice daily, increasing the time to two minutes as you recover. Toradol Injection You have been given an injection of ketorolac tromethamine (Toradol). This is an excellent, safe drug for pain control. It also has potent antiinflammatory action. You should have significant pain relief within about one hour. Toradol is not addicting and is non-sedating. It does not interfere with driving or work. Call or return if you develop itching, hives, shortness of breath, or rash. STEROID MEDICATION: You have been given a medicine of the cortisone/steroid class. This medication is used to control inflammation or allergy. It is usually only given for a short period of time, until the acute process subsides. There are usually no side effects from short-term use of cortisone-like medications. Some persons feel an increased sense of well-being and are not sleepy at bedtime. Long-term use of cortisone medications is best avoided, unless required for a severe condition. If your condition does not remit, or relapses after the course of corticosteroid medication, you should consult your physician. Treated you with a Lidoderm patch. This needs to be removed in 12 hours. You can buy [id number] Lidoderm patches that you can use after this is been removed. You need to start 24 hours from now. FOLLOW-UP CARE: If you have been referred to a physician for follow-up care, call the physicians office for an appointment as you were instructed or within the next two days. If you experience worsening or a significant change in your symptoms, notify the physician immediately or return to the Emergency Department at any time for re-evaluation. Prescriptions: Albuterol Sulfate [Proair HFA Inhalation Aerosol 8.5 gm MDI] 2 puff IH Q4H PRN #1 mdi PRN Reason: Cyclobenzaprine HCl [Flexeril 10 mg Tablet] 10 mg PO TIDP PRN #15 tab PRN Reason: Ibuprofen [Motrin 800 mg Tablet] 800 mg PO Q8H PRN #30 tab PRN Reason: Forms: Return to Work
[2018-05-17 14:59] VITALS: BP 125/83
--- NOTE | 2018-05-17 15:47 | RADIOLOGY REPORT (SQ) ---
EXAM DESCRIPTION: L SPINE WHOLE COMPLETED DATE/TIME: 05/17/2018 1:30 pm REASON FOR STUDY: low back pain worse to right COMPARISON: 11/09/2011 NUMBER OF VIEWS: Five views including obliques. TECHNIQUE: AP, lateral, oblique, and sacral radiographic images acquired of the lumbar spine. LIMITATIONS: None. FINDINGS: MINERALIZATION: Normal. SEGMENTATION: Normal. No transitional anatomy. ALIGNMENT: Normal. VERTEBRAE: Maintained height. No fracture or worrisome bone lesion. DISCS: Preserved height. No significant osteophytes or end plate irregularity. POSTERIOR ELEMENTS: Pedicles and facets are intact. No pars defect or posterior arch defects. HARDWARE: None in the spine. PARASPINAL SOFT TISSUES: Normal. PELVIS: Intact as visualized. No fractures or worrisome bone lesions. SI joints intact. OTHER: No other significant finding. IMPRESSION: NORMAL 5 VIEW LUMBAR SPINE. TECHNICAL DOCUMENTATION: JOB ID: [id number] [employer]- All Rights Reserved Reading location - IP/workstation name: [email or web address]
== END 2018-05-17 15:05 | disposition home or self-care (01) ==
LOC: ER 11:55
DX: M54.41 Lumbago with sciatica, right side (principal); J45.909 Unspecified asthma, uncomplicated
CPT/HCPCS: 99283; 96372; 72110; J1885

== ENCOUNTER 2019-08-01 14:26 | Emergency (ER) | payer OTHER ==
[2019-08-01] MEDS ORDERED: METHYLPREDNISOLONE INJ 125 MG/2 ML SDV IV ONE (14:33)
[2019-08-01] MEDS ORDERED: FAMOTIDINE 20 MG TABLET PO ONE (14:33)
[2019-08-01] MEDS ORDERED: DIPHENHYDRAMINE HCL 50 MG/ML VIAL IV ONE (14:33)
[2019-08-01] MEDS ORDERED: EPINEPHRINE INJ/PF 1 MG/1 ML AMPULE IM ONE (14:33)
--- NOTE | 2019-08-01 14:38 | ER Document Report ---
ED Medical Screen (RME) - General Chief Complaint: Allergic Reaction Stated Complaint: POSSIBLE ALLERGIC REACTION Time Seen by Provider: 08/01/19 14:32 Mode of Arrival: Ambulatory Information source: Patient Notes: 34-year-old male presented to ED for allergic reaction to crab legs. He states he is allergic to some seafood and did not know he was allergic to the crabs. He does have facial swelling and states he does feel a little short of breath. His O2 sat was 100%. Lungs were clear to auscultation at this time. Patient is alert oriented respirations regular nonlabored speaking in full sentences at this time. No obvious swelling to mouth tongue or throat. I have greeted and performed a rapid initial assessment of this patient. A comprehensive ED assessment and evaluation of the patient, analysis of test results and completion of medical decision making process will be conducted by an additional ED providers. TRAVEL OUTSIDE OF THE [place] IN LAST 30 DAYS: No - Related Data Allergies/Adverse Reactions: No Known Allergies Allergy (Verified 05/17/18 11:57) Past Medical History Pulmonary Medical History: Reports: Hx Asthma Endocrine Medical History: Denies: Hx Diabetes Mellitus Type 1, Hx Diabetes Mellitus Type 2 Renal/ Medical History: Denies: Hx Peritoneal Dialysis Musculoskeltal Medical History: Reports Hx Arthritis, Reports Hx Musculoskeletal Trauma Skin Medical History: Reports Hx Cellulitis - From embedded toothpick into his foot Psychiatric Medical History: Reports: Hx Anxiety, Hx Depression, Hx Obsessive Compulsive Disorder Comment Only: Hx Attention Deficit Hyperactivity Disorder - ADD Past Surgical History: Reports: Hx Orthopedic Surgery - toothpick removed from rt foot, Other - Removed toothpick from foot - Immunizations Immunizations up to date: Yes Hx Diphtheria, Pertussis, Tetanus Vaccination: Yes Physical Exam - Vital signs Vitals: Temp Pulse Resp BP Pulse Ox 97.8 F 66 20 148/74 H 100 08/01/19 14:28 08/01/19 14:28 08/01/19 14:28 08/01/19 14:28 08/01/19 14:28 Course - Vital Signs Vital signs: Temp Pulse Resp BP Pulse Ox 97.8 F 66 20 148/74 H 100 08/01/19 14:28 08/01/19 14:28 08/01/19 14:28 08/01/19 14:28 08/01/19 14:28
[2019-08-01 16:20] LABS: ABSOLUTE BASOPHILS # (AUTO) 0.1 10^3/uL (0.0-0.2); ABSOLUTE EOSINOPHILS # (AUTO) 0.2 10^3/uL (0.0-0.6); ABSOLUTE LYMPHOCYTES (AUTO) 2.9 10^3/uL (0.5-4.7); ABSOLUTE MONOCYTES (AUTO) 0.5 10^3/uL (0.1-1.4); ABSOLUTE NEUT (AUTO) 2.2 10^3/uL (1.7-8.2); BASOPHILS % (AUTO) 1.1 % (0-2); EOSINOPHILS % (AUTO) 3.3 % (0-6); HEMATOCRIT 42.9 % (37.9-51.0); HEMOGLOBIN 13.7 g/dL (13.5-17.0); MEAN CORPUSCULAR HGB CONC 31.8 g/dL (32.0-36.0); MEAN CORPUSCULAR VOLUME 69 fl (80-97); PLATELET COUNT 327 10^3/uL (150-450); RED BLOOD COUNT 6.19 10^6/uL (4.35-5.55); RED CELL DISTRIBUTION WIDTH 16.5 % (11.5-14.0); SEGMENTED NEUTROPHILS % (AUTO) 37.6 % (42-78); TOTAL CELLS COUNTED % (AUTO) 100 %
[2019-08-01 16:29] LABS: ALBUMIN 4.3 g/dL (3.5-5.0); ALKALINE PHOSPHATASE 49 U/L (38-126); ANION GAP 8 (5-19); ASPARTATE AMINO TRANSFERASE 26 U/L (17-59); BILIRUBIN,TOTAL 0.4 mg/dL (0.2-1.3); BLOOD UREA NITROGEN 15 mg/dL (7-20); CALCIUM 9.6 mg/dL (8.4-10.2); CARBON DIOXIDE 30 mmol/L (22-30); CHLORIDE 103 mmol/L (98-107); GLUCOSE 84 mg/dL (75-110); POTASSIUM 4.5 mmol/L (3.6-5.0); TOTAL PROTEIN 7.9 g/dL (6.3-8.2)
[2019-08-01 18:14] VITALS: BP 122/69
== END 2019-08-01 18:07 | disposition left against medical advice (07) ==
LOC: ER 14:26
DX: T78.40XA Allergy, unspecified, initial encounter (principal); R22.0 Localized swelling, mass and lump, head; R06.02 Shortness of breath; X58.XXXA Exposure to other specified factors, initial encounter; Z91.013 Allergy to seafood
CPT/HCPCS: 99281; 36415; 85025; 80053; J1200; J0171; J2930

== ENCOUNTER 2019-09-06 11:08 | Emergency (ER) | payer OTHER ==
--- NOTE | 2019-09-06 11:39 | ER Document Report ---
ED General - General Chief Complaint: Asthma Exacerbation Stated Complaint: BREATHING PROBLEMS Time Seen by Provider: 09/06/19 11:39 Primary Care Provider: NEHA LEE MD [ACTIVE STAFF] - Follow up as needed TRAVEL OUTSIDE OF THE [place] IN LAST 30 DAYS: No - HPI Notes: 34-year-old male with a history of asthma presents to the emergency room for evaluation after he was exposed to chemicals at his job which caused him to cough. Patient states he is out of his rescue inhaler and needs a new one. Denies any fevers chills, shortness of breath, dry cough. Patient also has a history of seasonal allergies and is taking medication. Denies fevers, chills, chest pain,palpitations, shortness of breath, dyspnea, nausea, vomiting, diarrhea, abdominal pain, hematuria,blurred vision, double vision, loss of vision, speech changes, LH, dizziness, syncope, headaches, wheezing, ST, URI, neck pain, weakness, bowel or bladder dysfunction, saddle anesthesia, numbness or tingling in bilateral upper or lower extremities equally, muscle paralysis, weakness in bilateral upper or lower extremities equally or rash. - Related Data Allergies/Adverse Reactions: crab Allergy (Verified 08/01/19 14:58) Hives Past Medical History - General Information source: Patient - Social History Smoking Status: Never Smoker Family History: Arthritis, CAD, DM, Hyperlipidemia, Hypertension Patient has suicidal ideation: No Patient has homicidal ideation: No Pulmonary Medical History: Reports: Hx Asthma Endocrine Medical History: Denies: Hx Diabetes Mellitus Type 1, Hx Diabetes Mellitus Type 2 Renal/ Medical History: Denies: Hx Peritoneal Dialysis Musculoskeletal Medical History: Reports Hx Arthritis, Reports Hx Musculoskeletal Trauma Skin Medical History: Reports Hx Cellulitis - From embedded toothpick into his foot Psychiatric Medical History: Reports: Hx Anxiety, Hx Depression, Hx Obsessive Compulsive Disorder Comment Only: Hx Attention Deficit Hyperactivity Disorder - ADD Past Surgical History: Reports: Hx Orthopedic Surgery - toothpick removed from rt foot, Other - Removed toothpick from foot - Immunizations Immunizations up to date: Yes Hx Diphtheria, Pertussis, Tetanus Vaccination: Yes Review of Systems - Review of Systems Constitutional: No symptoms reported EENT: No symptoms reported Cardiovascular: No symptoms reported Respiratory: See HPI Gastrointestinal: No symptoms reported Genitourinary: No symptoms reported Male Genitourinary: No symptoms reported Musculoskeletal: No symptoms reported Skin: No symptoms reported Hematologic/Lymphatic: No symptoms reported Neurological/Psychological: No symptoms reported Physical Exam - Vital signs Vitals: Temp Pulse Resp BP Pulse Ox 98.5 F 72 18 109/72 97 09/06/19 11:17 09/06/19 11:17 09/06/19 11:17 09/06/19 11:17 09/06/19 11:17 - Notes Notes: PHYSICAL EXAMINATION:reviewed vital signs by RN GENERAL: Well-appearing, well-nourished and in no acute distress. HEAD: Atraumatic, normocephalic. EYES: Pupils equal round and reactive to light, extraocular movements intact, sclera anicteric, conjunctiva are normal. ENT: Nares patent, oropharynx clear without exudates. Moist mucous membranes. NECK: Normal range of motion, supple without lymphadenopathy LUNGS: Breath sounds clear to auscultation bilaterally and equal. No wheezes rales or rhonchi. HEART: Regular rate and rhythm without murmurs ABDOMEN: Soft, nontender, nondistended abdomen. No guarding, no rebound. No masses appreciated. Musculoskeletal: Normal range of motion, no pitting or edema. No cyanosis. NEUROLOGICAL: Cranial nerves grossly intact. Normal speech, normal gait. Normal sensory, motor exams PSYCH: Normal mood, normal affect. SKIN: Warm, Dry, normal turgor, no rashes or lesions noted. Course - Re-evaluation Re-evalutation: 09/06/19 12:50 Afebrile vitals stable no distress. Nurses notes reviewed. Eating and drinking without any issues. Patient is requesting a rescue inhaler due to being out of his with a history of asthma. Patient is not actively wheezing. Chest x-ray was negative for any acute findings such as pneumonia, pneumothorax pleural effusion etc. Hospitals on a short supply of pro-air, so I will prescribe patient a pro-air to leaf size picker at the pharmacy. Patient does not require any antibiotics, steroids or further management at this time. Advised to follow-up outpatient as needed. Patient does not have any criterion for Clomid but discussed to call the [facility] number if he is experiencing any symptoms such as shortness of breath, dry cough, fevers. Discussed social distancing and washing hands and sanitizing. All questions and concerns were answered by this provider. After performing a Medical Screening Examination, I estimate there is LOW risk for RUPTURED ESOPHAGUS, PNEUMOTHORAX, PULMONARY EMBOLISM, ACUTE CORONARY SYNDROME, OR THORACIC AORTIC DISSECTION, thus I consider the discharge disposition reasonable. I have reevaluated this patient multiple times and no significant life threatening changes are noted. The patient and I have discussed the diagnosis and risks, and we agree with discharging home with close follow- up. We also discussed returning to the Emergency Department immediately if new or worsening symptoms occur. We have discussed the symptoms which are most concerning (e.g., bloody sputum, worsening pain or shortness of breath) that necessitate immediate return. - Vital Signs Vital signs: Temp Pulse Resp BP Pulse Ox 98.5 F 72 18 109/72 97 09/06/19 11:17 09/06/19 11:17 09/06/19 11:17 09/06/19 11:17 09/06/19 11:17 Discharge - Discharge Clinical Impression: Cough, Asthma exacerbation Condition: Stable Disposition: HOME, SELF-CARE Instructions: Asthma ([facility]), Cough Suppressant & Expectorant Medications, Inhaled Bronchodilators ([facility]) Prescriptions: Albuterol Sulfate [Proair Respiclick] 90 mcg IH Q4HP PRN #1 [email or web address] PRN Reason: Forms: Return to Work Referrals: NEHA LEE MD [ACTIVE STAFF] - Follow up as needed
[2019-09-06] MEDS ORDERED: ALBUTEROL SULFATE HFA (90 MCG/PUFF) 8 GM MDI IH ONE (11:59)
--- NOTE | 2019-09-06 13:02 | RADIOLOGY REPORT (SQ) ---
EXAM DESCRIPTION: CHEST SINGLE VIEW IMAGES COMPLETED DATE/TIME: 09/06/2019 12:50 pm REASON FOR STUDY: cough, hx of asthma COMPARISON: 08/30/2011. EXAM PARAMETERS: NUMBER OF VIEWS: One view. TECHNIQUE: Single frontal radiographic view of the chest acquired. RADIATION DOSE: NA LIMITATIONS: None. FINDINGS: LUNGS AND PLEURA: No opacities, masses or pneumothorax. No pleural effusion. MEDIASTINUM AND HILAR STRUCTURES: No masses. Contour normal. HEART AND VASCULAR STRUCTURES: Heart normal in size. Normal vasculature. BONES: No acute findings. HARDWARE: None in the chest. OTHER: No other significant finding. IMPRESSION: NO ACUTE RADIOGRAPHIC FINDING IN THE CHEST. TECHNICAL DOCUMENTATION: JOB ID: [id number] [employer]- All Rights Reserved Reading location - IP/workstation name: [email or web address]
[2019-09-06 13:14] VITALS: BP 117/75
== END 2019-09-06 13:14 | disposition home or self-care (01) ==
LOC: ER 11:08
DX: J45.901 Unspecified asthma with (acute) exacerbation (principal); R05 Cough
CPT/HCPCS: 71045; 99284

== ENCOUNTER 2019-09-27 23:48 | Emergency (ER) | payer OTHER ==
[2019-09-28] MEDS ORDERED: PREDNISONE 20 MG TABLET PO ONE (02:02)
[2019-09-28] MEDS ORDERED: IBUPROFEN 800 MG TABLET PO ONE (02:02)
--- NOTE | 2019-09-28 02:03 | ER Document Report ---
ED Neck/Back Problem - General Chief Complaint: Back Pain Stated Complaint: BACK INJURY Time Seen by Provider: 09/28/19 01:00 Mode of Arrival: Ambulatory Information source: Patient Notes: 34-year-old male no previous medical problems presents to the emergency room complaining of some mid upper and mid lower back pain that started last evening after lifting heavy machinery into the back of the truck at work. Denies falling to the ground or any direct injury to his back. No history of previous back trauma or back injury. No medications for symptoms. Denies any urinary symptoms. Denies any loss control of her bowels or bladder, no saddle anesthesia, no red flags. States drove himself to the emergency room. TRAVEL OUTSIDE OF THE [place] IN LAST 30 DAYS: No - HPI Patient complains to provider of: Pain, Injury - Related Data Allergies/Adverse Reactions: crab Allergy (Verified 08/01/19 14:58) Hives Past Medical History - General Information source: Patient - Social History Smoking Status: Never Smoker Chew tobacco use (# tins/day): No Frequency of alcohol use: Occasional Drug Abuse: None Family History: Arthritis, CAD, DM, Hyperlipidemia, Hypertension Patient has homicidal ideation: No Pulmonary Medical History: Reports: Hx Asthma Endocrine Medical History: Denies: Hx Diabetes Mellitus Type 1, Hx Diabetes Mellitus Type 2 Renal/ Medical History: Denies: Hx Peritoneal Dialysis Musculoskeletal Medical History: Reports Hx Arthritis, Reports Hx Musculoskeletal Trauma Skin Medical History: Reports Hx Cellulitis - From embedded toothpick into his foot Psychiatric Medical History: Reports: Hx Anxiety, Hx Depression, Hx Obsessive Compulsive Disorder Comment Only: Hx Attention Deficit Hyperactivity Disorder - ADD Past Surgical History: Reports: Hx Orthopedic Surgery - toothpick removed from rt foot, Other - Removed toothpick from foot - Immunizations Immunizations up to date: Yes Hx Diphtheria, Pertussis, Tetanus Vaccination: Yes Review of Systems - Review of Systems Constitutional: No symptoms reported Cardiovascular: No symptoms reported Respiratory: No symptoms reported Gastrointestinal: No symptoms reported Musculoskeletal: Back pain Skin: No symptoms reported Neurological/Psychological: No symptoms reported -: Yes All other systems reviewed and negative Physical Exam - Vital signs Vitals: Temp Pulse Resp BP Pulse Ox 98.6 F 70 16 123/80 99 09/28/19 00:10 09/28/19 00:10 09/28/19 00:10 09/28/19 00:10 09/28/19 00:10 - General General appearance: Appears well, Alert In distress: Mild - HEENT Head: Normocephalic, Atraumatic Eyes: Normal Pupils: PERRL - Respiratory Respiratory status: No respiratory distress Chest status: Nontender Breath sounds: Normal Chest palpation: Normal - Cardiovascular Rhythm: Regular Heart sounds: Normal auscultation Murmur: No - Abdominal Inspection: Normal Distension: No distension Bowel sounds: Normal Tenderness: Nontender Organomegaly: No organomegaly - Back Back: Tender, Vertebra tenderness - Patient has some tenderness and muscle spasms noted from T8-T10, L4-S1 full range of motion with flexion, extension, negative straight leg raising bilaterally. No obvious deformities noted.. No: CVA tenderness - Extremities General upper extremity: Normal inspection, Nontender, Normal color, Normal ROM, Normal temperature General lower extremity: Normal inspection, Nontender, Normal color, Normal ROM, Normal temperature, Normal weight bearing. No: Amrit's sign - Neurological Neuro grossly intact: Yes Cognition: Normal Orientation: AAOx4 [place] Coma Scale Eye Opening: Spontaneous Kal Coma Scale Verbal: Oriented Kal Coma Scale Motor: Obeys Commands Kal Coma Scale Total: 15 Speech: Normal Motor strength normal: LUE, RUE, LLE, RLE Sensory: Normal Notes: Positive pedal pulses bilaterally. Ambulatory with a steady gait. Neurovascularly intact. - Skin Skin Temperature: Warm Skin Moisture: Dry Skin Color: Normal Course - Re-evaluation Re-evalutation: 09/28/19 03:06 Patient is resting comfortably with decreased pain. He is ambulatory with a steady gait. Negative straight leg raising bilaterally. Neurovascularly intact. Patient was counseled to take medications as prescribed. Outpatient follow-up with Worker's [employer]. provider. He was given strict return to the emergency room guidelines. Return for new or worsening symptoms. All questions were answered. Patient verbalized understanding and agrees with plan of care. - Vital Signs Vital signs: Temp Pulse Resp BP Pulse Ox 97.6 F 61 15 116/87 H 98 09/28/19 03:52 09/28/19 03:52 09/28/19 03:52 09/28/19 03:52 09/28/19 03:52 Discharge - Discharge Clinical Impression: Back pain due to injury Condition: Stable Disposition: HOME, SELF-CARE Instructions: Low Back Pain ([facility]), Muscle Strain ([facility]) Additional Instructions: Rest take medications as prescribed. Outpatient follow-up with Worker's Comp. provider. Return for any new or worsening symptoms. Prescriptions: Prednisone [Deltasone 20 mg Tablet] 20 mg PO DAILY 9 Days #15 tablet Cyclobenzaprine HCl [Flexeril 10 mg Tablet] 10 mg PO TIDP PRN #15 tab PRN Reason: Diclofenac Sodium [Voltaren 50 Mg Tablet.Dr] 50 mg PO BID 5 Days #20 tablet.dr Forms: Return to Work
[2019-09-28 03:53] VITALS: BP 116/87
== END 2019-09-28 03:54 | disposition home or self-care (01) ==
LOC: ER 23:48
DX: S39.92XA Unspecified injury of lower back, initial encounter (principal); S29.9XXA Unspecified injury of thorax, initial encounter; M54.9 Dorsalgia, unspecified; M54.6 Pain in thoracic spine; M54.5 Low back pain; X50.0XXA Overexertion from strenuous movement or load, initial encounter; J45.909 Unspecified asthma, uncomplicated
CPT/HCPCS: 99283; J7512

== ENCOUNTER 2020-02-02 20:37 | Emergency (ER) | payer OTHER ==
[2020-02-02] MEDS: ALBUTEROL SULFATE 0.083% NEB 2.5 MG/3 ML AMPUL NEB SCH ×2 (21:00→21:28)
--- NOTE | 2020-02-02 21:19 | ER Document Report ---
ED Respiratory Problem - General Chief Complaint: Asthma Exacerbation Stated Complaint: SHORTNESS OF BREATH, WHEEZING, DIZZINESS Time Seen by Provider: 02/02/20 21:02 Notes: Patient is a 34-year-old male who comes emergency department for chief complaint of an asthma exacerbation. He states that he was at [employer] restaurant, they were cooking in front of him when he started developing wheezing, shortness of breath, and felt like he was getting an asthma exacerbation. He comes by EMS. He states he is out of his albuterol at home and is requesting a refill. Patient is already almost completed his albuterol treatments and wheezing and s hortness of breath of already resolved. He denies cough, fever, or any sick symptoms. He denies any history otherwise, he denies any other complaints. TRAVEL OUTSIDE OF THE [place] IN LAST 30 DAYS: No - Related Data Allergies/Adverse Reactions: crab Allergy (Verified 08/01/19 14:58) Hives Home Medications: albuterol Past Medical History - General Information source: Patient - Social History Smoking Status: Never Smoker Chew tobacco use (# tins/day): No Frequency of alcohol use: None Drug Abuse: None Lives with: Family Family History: Arthritis, CAD, DM, Hyperlipidemia, Hypertension Pulmonary Medical History: Reports: Hx Asthma Endocrine Medical History: Denies: Hx Diabetes Mellitus Type 1, Hx Diabetes Mellitus Type 2 Renal/ Medical History: Denies: Hx Peritoneal Dialysis Musculoskeletal Medical History: Reports Hx Arthritis, Reports Hx Musculoskeletal Trauma Skin Medical History: Reports Hx Cellulitis - From embedded toothpick into his foot Psychiatric Medical History: Reports: Hx Anxiety, Hx Depression, Hx Obsessive Compulsive Disorder Comment Only: Hx Attention Deficit Hyperactivity Disorder - ADD Past Surgical History: Reports: Hx Orthopedic Surgery - toothpick removed from rt foot, Other - Removed toothpick from foot - Immunizations Immunizations up to date: Yes Hx Diphtheria, Pertussis, Tetanus Vaccination: Yes Review of Systems - Review of Systems Constitutional: No symptoms reported EENT: No symptoms reported Cardiovascular: No symptoms reported Respiratory: See HPI Gastrointestinal: No symptoms reported Genitourinary: No symptoms reported Male Genitourinary: No symptoms reported Musculoskeletal: No symptoms reported Skin: No symptoms reported Hematologic/Lymphatic: No symptoms reported Neurological/Psychological: No symptoms reported Physical Exam - Vital signs Vitals: Temp Resp 98.1 F 19 02/02/20 20:50 02/02/20 20:50 - Notes Notes: GENERAL: Alert, interacts well. No acute distress. HEAD: Normocephalic, atraumatic. EYES: Pupils equal, round, and reactive to light. Extraocular movements intact. ENT: Oral mucosa moist, tongue midline. Oropharynx unremarkable. Airway patent. Nares patent, sinuses non-tender, ear canals unremarkable, TM's intact. NECK: Full range of motion. Supple. Trachea midline. No lymphadenopathy. LUNGS: Clear to auscultation bilaterally, no wheezes, rales, or rhonchi. No respiratory distress. Non-tender chest wall. HEART: Regular rate and rhythm. No murmur ABDOMEN: Soft, non-tender. Non-distended. EXTREMITIES: Moves all 4 extremities spontaneously. No edema, normal radial and dorsalis pedis pulses bilaterally. No cyanosis. BACK: no cervical, thoracic, lumbar midline tenderness. No saddle anesthesia, normal distal neurovascular exam. Moves all extremities in full range of motion. NEUROLOGICAL: Alert and oriented x3. Normal speech. Cranial nerves II through XII grossly intact. Strength 5/5 in all extremities. PSYCH: Normal affect, normal mood. SKIN: Warm, dry, normal turgor. No rashes or lesions noted. Course - Re-evaluation Re-evalutation: Patient had resolution of his wheezing and shortness of breath symptoms with a single albuterol nebulizer treatment. Patient with no complaints afterwards, states he is grateful and ready to leave. He is requesting an inhaler refill. He does not have any sick symptoms or concerning vital signs. Patient provided with spacer, inhaler, inhaler prescription, discussed follow-up and return precautions. Patient states appreciation and agreement. - Vital Signs Vital signs: Temp Pulse Resp BP Pulse Ox 98.0 F 15 128/73 H 98 02/02/20 22:00 02/02/20 22:00 02/02/20 22:00 02/02/20 22:00 Discharge - Discharge Clinical Impression: Asthma exacerbation Qualifiers: Asthma severity: mild Asthma persistence: unspecified Qualified Code(s): J45.901 - Unspecified asthma with (acute) exacerbation Condition: Stable Disposition: HOME, SELF-CARE Additional Instructions: Your evaluation is most consistent with an asthma exacerbation. Because this cleared easily with only the albuterol nebulizer you have not been started on steroids, however use the albuterol inhaler as prescribed if needed, follow-up closely with primary care. Return if you worsen including difficulty breathing, fever, developing a concerning cough, or any other concerning or worsening symptoms. Prescriptions: Albuterol Sulfate [Proair HFA Inhalation Aerosol 8.5 gm MDI] 2 puff IH Q4H PRN #1 mdi PRN Reason:
[2020-02-02] MEDS ORDERED: ALBUTEROL SULFATE HFA (90 MCG/PUFF) 8 GM MDI IH ONE (21:47)
[2020-02-02 22:12] VITALS: BP 128/73
== END 2020-02-02 22:12 | disposition home or self-care (01) ==
LOC: ER 20:37
DX: J45.901 Unspecified asthma with (acute) exacerbation (principal); R06.02 Shortness of breath; R42 Dizziness and giddiness
CPT/HCPCS: 94640; 99283; J7613; J3490

== ENCOUNTER 2020-02-11 05:41 | Emergency (ER) | payer OTHER ==
--- NOTE | 2020-02-11 09:58 | RADIOLOGY REPORT (SQ) ---
EXAM DESCRIPTION: CT HEAD WITHOUT IMAGES COMPLETED DATE/TIME: 02/11/2020 9:43 am REASON FOR STUDY: fall/posterior headache COMPARISON: 01/25/2014 TECHNIQUE: Axial images acquired through the brain without intravenous contrast. Images reviewed wi th bone, brain and subdural windows. Additional sagittal and coronal reconstructions were generated. Images stored on PACS. All CT scanners at this facility use dose modulation, iterative reconstruction, and/or weight based d osing when appropriate to reduce radiation dose to as low as reasonably achievable (ALARA). [facility]: Dose Right [facility]: CareDose [facility]: Dose Right [facility]: Teradose 4D [facility]: Swrve RADIATION DOSE: CT Rad equipment meets quality standard of care and radiation dose reduction techniq ues were employed. CTDIvol: 53.2 mGy. DLP: 1124 mGy-cm. mGy. LIMITATIONS: None. FINDINGS: VENTRICLES: Normal size and contour. CEREBRUM: No masses. No hemorrhage. No midline shift. No evidence for acute infarction. Normal gra y/white matter differentiation. No areas of low density in the white matter. CEREBELLUM: No masses. No hemorrhage. No alteration of density. No evidence for acute infarction. EXTRAAXIAL SPACES: No fluid collections. No masses. ORBITS AND GLOBE: No intra- or extraconal masses. Normal contour of globe without masses. CALVARIUM: No fracture. PARANASAL SINUSES: Mild mucosal thickening within the ethmoid air cells and inferior left maxillary s inus. Remaining sinuses are clear. SOFT TISSUES: No mass or hematoma. OTHER: No other significant finding. IMPRESSION: NO ACUTE INTRACRANIAL IMAGING FINDINGS. EVIDENCE OF ACUTE STROKE: NO. COMMENT: Quality ID # [id number]: Final reports with documentation of one or more dose reduction techniques (e.g., Automated exposure control, adjustment of the mA and/or kV according to patient size, use of iterative reconstruction technique) TECHNICAL DOCUMENTATION: JOB ID: [id number] 2010 [employer]- All Rights Reserved Reading location - IP/workstation name: [email or web address]
--- NOTE | 2020-02-11 10:14 | RADIOLOGY REPORT (SQ) ---
EXAM DESCRIPTION: CT CERVICAL SPINE WITHOUT IMAGES COMPLETED DATE/TIME: 02/11/2020 9:43 am REASON FOR STUDY: neck pain/fall COMPARISON: None. TECHNIQUE: Axial images acquired through the cervical spine without intravenous contrast. Images re viewed with lung, soft tissue and bone windows. Reconstructed coronal and sagittal MPR images review ed. Images stored on PACS. All CT scanners at this facility use dose modulation, iterative reconstruction, and/or weight based d osing when appropriate to reduce radiation dose to as low as reasonably achievable (ALARA). [facility]: Dose Right [facility]: CareDose [facility]: Dose Right [facility]: Teradose 4D [facility]: [email or web address] RADIATION DOSE: CT Rad equipment meets quality standard of care and radiation dose reduction techniq ues were employed. CTDIvol: 19.7 mGy. DLP: 385 mGy-cm. mGy. LIMITATIONS: None. FINDINGS: ALIGNMENT: Straightening of the normal cervical lordosis. MINERALIZATION: Normal. VERTEBRAL BODIES: No fractures or dislocation. DISCS: No significant disc disease. FACETS, LATERAL MASSES, POSTERIOR ELEMENTS: No fractures. No dislocation. No acute findings. HARDWARE: None in the spine. VISUALIZED RIBS: No fractures. LUNG APICES AND SOFT TISSUES: No significant or acute findings. OTHER: No other significant finding. IMPRESSION: No evidence of acute bony abnormality of the cervical spine. TECHNICAL DOCUMENTATION: JOB ID: [id number] Quality ID # [id number]: Final reports with documentation of one or more dose reduction techniques (e.g., Au tomated exposure control, adjustment of the mA and/or kV according to patient size, use of iterative reconstruction technique) 2010 [employer]- All Rights Reserved Reading location - IP/workstation name: [email or web address]
--- NOTE | 2020-02-11 11:03 | ER Document Report ---
Entered by MARILIN TADEO SCRIBE 02/11/20 0932 Acting as scribe for:NAOMI HATFIELD MD ED General - General Chief Complaint: Headache Stated Complaint: FEVER/CHILLS/HEADACHE Time Seen by Provider: 02/11/20 08:48 Mode of Arrival: Ambulatory Information source: Patient Notes: This 34 year old male patient presents to the emergency department today with a headache and nausea. Patient states yesterday morning he stood up to fast and hit his head on a soap khan. Patient states he was fine last night but woke up this morning with a throbbing headache. Patient states he took x1 Naproxen without relief and reports nausea without vomiting. Patient reports an episode of ringing in his ears and blurry vision that lasted x45 min this morning. Denies any nosebleeds, chest pain, LOC, or trouble swallowing. Patient reports some dizziness but is able to ambulate. TRAVEL OUTSIDE OF THE [place] IN LAST 30 DAYS: No - Related Data Allergies/Adverse Reactions: crab Allergy (Verified 08/01/19 14:58) Hives Past Medical History - General Information source: Patient - Social History Smoking Status: Never Smoker Cigarette use (# per day): No Family History: Arthritis, CAD, DM, Hyperlipidemia, Hypertension Pulmonary Medical History: Reports: Hx Asthma Musculoskeletal Medical History: Reports Hx Arthritis, Reports Hx Musculoskeletal Trauma Skin Medical History: Reports Hx Cellulitis - From embedded toothpick into his foot Psychiatric Medical History: Reports: Hx Anxiety, Hx Attention Deficit Hyperactivity Disorder - ADD, Hx Depression, Hx Obsessive Compulsive Disorder Past Surgical History: Reports: Hx Orthopedic Surgery - toothpick removed from rt foot, Other - Removed toothpick from foot - Immunizations Immunizations up to date: Yes Hx Diphtheria, Pertussis, Tetanus Vaccination: Yes Review of Systems - Review of Systems Constitutional: No symptoms reported EENT: See HPI, Blurred vision, Other - ears ringing. denies: Difficulty swallowing Cardiovascular: See HPI, Dizziness. denies: Chest pain Respiratory: No symptoms reported Gastrointestinal: See HPI, Nausea. denies: Vomiting Genitourinary: No symptoms reported Male Genitourinary: No symptoms reported Musculoskeletal: No symptoms reported Skin: No symptoms reported Hematologic/Lymphatic: No symptoms reported Neurological/Psychological: See HPI, Headaches. denies: Lost consciousness -: Yes All other systems reviewed and negative Physical Exam - Vital signs Vitals: Temp Pulse Resp BP Pulse Ox 97.9 F 84 16 131/85 H 99 02/11/20 05:49 02/11/20 05:49 02/11/20 05:49 02/11/20 05:49 02/11/20 05:49 - General General appearance: Appears well, Alert - HEENT Head: Normocephalic, Atraumatic Eyes: Normal Pupils: PERRL Ears: Normal External canal: Normal Tympanic membrane: Serous effusion - bilateral. No: Bulging Nasal: Normal Mouth/Lips: Normal Notes: Left lateral gaze nystagmus. - Respiratory Respiratory status: No respiratory distress Chest status: Nontender Breath sounds: Normal Chest palpation: Normal - Cardiovascular Rhythm: Regular Heart sounds: Normal auscultation Murmur: No - Abdominal Inspection: Normal Distension: No distension Bowel sounds: Normal Tenderness: Nontender - Extremities General upper extremity: Normal inspection, Normal ROM, Normal strength. No: Edema General lower extremity: Normal inspection, Normal ROM, Normal strength. No: Edema - Neurological Neuro grossly intact: Yes Cognition: Normal Orientation: AAOx4 [place] Coma Scale Eye Opening: Spontaneous Kal Coma Scale Verbal: Oriented Kal Coma Scale Motor: Obeys Commands Kal Coma Scale Total: 15 Speech: Normal Cranial nerves: Normal Cerebellar coordination: Normal Motor strength normal: LUE, RUE, LLE, RLE Additional motor exam normals: Equal cylinder steamer. No: Pronator drift Sensory: Normal - Psychological Associated symptoms: Normal affect, Normal mood - Skin Skin Temperature: Warm Skin Moisture: Dry Skin Color: Normal Course - Re-evaluation Re-evalutation: 02/11/20 10:59 Patient reports his throbbing pain has improved. - Vital Signs Vital signs: Temp Pulse Resp BP Pulse Ox 97.9 F 84 16 131/85 H 99 02/11/20 05:49 02/11/20 05:49 02/11/20 05:49 02/11/20 05:49 02/11/20 05:49 - Diagnostic Test Radiology reviewed: Image reviewed, Reports reviewed Radiology results interpreted by me: 02/11/20 11:[address] 02/11/20 09:02 IMPRESSION: NO ACUTE INTRACRANIAL IMAGING FINDINGS. EVIDENCE OF ACUTE STROKE: NO. Cervical Spine CT 02/11/20 09:03 IMPRESSION: No evidence of acute bony abnormality of the cervical spine. CT scan of head showed no acute process no evidence of stroke no evidence of trauma to the skull the soft tissues no swelling no hematomas. CT cervical spine shows no acute bony abnormality as well. Discharge - Discharge Clinical Impression: Headache, Head injury, acute Condition: Stable Disposition: HOME, SELF-CARE Additional Instructions: Headache The physician does not feel that the headache you are experiencing has a serious underlying cause. Most headaches are due to emotional stress, with resultant muscle tension (tension headache). Occasionally, headaches are secondary to changes in the blood vessels of the scalp (vascular headache and migraine headache). Sometimes, a headache is the first symptom of another developing illness, such as a viral infection. You have no evidence of stroke, bleeding, meningitis, or other serious cause of your headache. The treatment of headaches varies with the severity and cause of the pain. Not all headaches need pain shots. In fact, there is evidence that using narcotics for headaches may make them worse in the long run. The physician will determine the therapy that's in your best interest. If you develop a fever, if the headache is different from any you've previously experienced, or if the headache progressively worsens, then call your physician at once or go to the emergency room. I personally performed the services described in the documentation, reviewed and edited the documentation which was dictated to the scribe in my presence, and it accurately records my words and actions.
[2020-02-11 11:12] VITALS: BP 125/80
== END 2020-02-11 11:13 | disposition home or self-care (01) ==
LOC: ER 05:41
DX: S09.90XA Unspecified injury of head, initial encounter (principal); R51 Headache; W22.09XA Striking against other stationary object, initial encounter; R11.0 Nausea; H53.8 Other visual disturbances; H93.13 Tinnitus, bilateral; Z91.013 Allergy to seafood; I10 Essential (primary) hypertension; J45.909 Unspecified asthma, uncomplicated; H55.00 Unspecified nystagmus
CPT/HCPCS: 70450; 72125; 99284

== ENCOUNTER 2020-05-15 19:23 | Emergency (ER) | payer OTHER ==
--- NOTE | 2020-05-15 21:46 | RADIOLOGY REPORT (SQ) ---
EXAM DESCRIPTION: SHOULDER LEFT 2 OR MORE VIEWS 05/15/2020 8:53 PM [employer] CLINICAL HISTORY: 34 years Male, trauma; ; COMPARISON: None. FINDINGS: 3 views were obtained. Fairly geographic appearing mixed lytic/sclerotic focus is noted about the medial aspect of the proximal left humeral metaphysis with a fairly narrow zone of transition. Otherwise, remaining visualized osseous structures appear normal without acute fracture or dislocation. IMPRESSION: No acute fracture or dislocation. 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 Recommend definitive assessment with MR.
--- NOTE | 2020-05-15 22:13 | ER Document Report ---
ED Extremity Problem, Upper - General Chief Complaint: Arm Injury Stated Complaint: ARM INJURY Time Seen by Provider: 05/15/20 20:41 Primary Care Provider: MANDI SMITH MD [NO LOCAL MD] - Follow up as needed NORM KEENAN MD [ASSOCIATE] - Follow up as needed EDEL PARIS JR, [ACTIVE PROVISIONAL STAFF] - Follow up as needed TRAVEL OUTSIDE OF THE [place] IN LAST 30 DAYS: No - HPI Notes: 34-year-old male presents to ED for evaluation of left-sided shoulder pain after throwing a garbage yesterday. Patient reports he felt a pull in the deltoid region when attempting to lift the garbage up overhead and throw it. Patient notes that the pain radiates into the elbow region. He denies numbness or paresthesias. Denies pain into the posterior aspect of the shoulder. Patient states that he has not had this happen to him in the past. He denies any nausea or vomiting. Denies chest pain or shortness of breath. Denies any other complaints. - Related Data Allergies/Adverse Reactions: crab Allergy (Verified 08/01/19 14:58) Hives Home Medications: albuterol Past Medical History - Social History Smoking Status: Never Smoker Frequency of alcohol use: Occasional Drug Abuse: None Family History: Arthritis, CAD, DM, Hyperlipidemia, Hypertension Patient has homicidal ideation: No - Medical History Medical History: Negative Pulmonary Medical History: Reports: Hx Asthma Endocrine Medical History: Denies: Hx Diabetes Mellitus Type 1, Hx Diabetes Mellitus Type 2 Renal/ Medical History: Denies: Hx Peritoneal Dialysis Musculoskeletal Medical History: Reports Hx Arthritis, Reports Hx Musculo skeletal Trauma Skin Medical History: Reports Hx Cellulitis - From embedded toothpick into his foot Psychiatric Medical History: Reports: Hx Anxiety, Hx Attention Deficit Hyperactivity Disorder - ADD, Hx Depression, Hx Obsessive Compulsive Disorder Past Surgical History: Reports: Hx Orthopedic Surgery - toothpick removed from rt foot, Other - Removed toothpick from foot - Immunizations Immunizations up to date: Yes Hx Diphtheria, Pertussis, Tetanus Vaccination: Yes Review of Systems - Review of Systems Notes: Constitutional: Negative for fever. HENT: Negative for sore throat. Eyes: Negative for visual changes. Cardiovascular: Negative for chest pain. Respiratory: Negative for shortness of breath. Gastrointestinal: Negative for abdominal pain, vomiting or diarrhea. Genitourinary: Negative for dysuria. Musculoskeletal: Negative for back pain. + for shoulder exam. Skin: Negative for rash. Neurological: Negative for headaches, weakness or numbness. 10 point ROS negative except as marked above and in HPI. Physical Exam - Vital signs Vitals: Temp Pulse Resp BP Pulse Ox 98.7 F 76 16 131/71 H 98 05/15/20 19:45 05/15/20 19:45 05/15/20 19:45 05/15/20 19:45 05/15/20 19:45 General: No apparent distress. Alert and oriented x3. Skin: Intact without any jaundice, pallor, or erythema. Warm and dry. Musculoskeletal: Left Shoulder: Tenderness to palpation along the medial aspect of the left deltoid with decreased ROM. No erythema or evidence of infected joint. No swelling, ecchymosis, or deformities. Decreased range of motion with pain. No tenderness to palpation over elbow with full range of motion. Strength and sensation intact. Brisk capillary refill. Radial pulses 2+ bilaterally. Neuro: GCS 15. Course - Re-evaluation Re-evalutation: 05/15/20 22:41 34-year-old male presents to ED for evaluation of left shoulder pain. Patient was evaluated with x-rays of the left shoulder. Patient was evaluated with x- rays. Xrays were negative for fracture or dislocation. X-rays were notable for a sclerotic lesion to the medial aspect of the proximal humerus. This is exactly over where patient is point tender. Unable to determine what type of lesion this is as it is benign versus a cancerous process. These results were extensively discussed with the patient. Patient is instructed to continue wearing his splint and that he will require follow-up with orthopedics moving forward. He is provided multiple referrals to different groups in order to provide someone for further management. Patient is advised to rest, ice and elevate the extremity. Apply ice to the affected area 20 minutes on, 20 minutes off throughout the day. Patient is given a prescription for tordol and norco. Patient is given a referral to orthopedics for follow up. Understands indications to return to the ED. Understands course of management. Patient is in agreement with care plan. - Vital Signs Vital signs: Temp Pulse Resp BP Pulse Ox 98.7 F 76 16 131/71 H 98 05/15/20 19:45 05/15/20 19:45 05/15/20 19:45 05/15/20 19:45 05/15/20 19:45 - Laboratory Results Critical Laboratory Results Reviewed: No Critical Results - Radiology Results Critical Radiology Results Reviewed: No Critical Results Discharge - Discharge Clinical Impression: Lesion of bone of left shoulder Condition: Stable Disposition: HOME, SELF-CARE Instructions: Sling as Treatment ([facility]), Sling to be Used ([facility]) Prescriptions: Ketorolac Tromethamine [Toradol 10 mg Tablet] 10 mg PO Q8HP PRN #15 tablet PRN Reason: Hydrocodone/Acetaminophen [[place] 7.5-325 Tablet] 1 each PO TID #12 tablet Forms: Return to Work Referrals: MANDI SMITH MD [NO LOCAL MD] - Follow up as needed NORM KEENAN MD [ASSOCIATE] - Follow up as needed EDEL PARIS JR, DO [ACTIVE PROVISIONAL STAFF] - Follow up as needed
[2020-05-15] MEDS ORDERED: HYDROCODONE/ACETAMINOPHEN 5-325 MG TABLET PO ONE (23:59)
[2020-05-16 00:09] VITALS: BP 127/85
== END 2020-05-16 00:11 | disposition home or self-care (01) ==
LOC: ER 19:23
DX: M89.9 Disorder of bone, unspecified (principal); M25.512 Pain in left shoulder; J45.909 Unspecified asthma, uncomplicated; Z79.899 Other long term (current) drug therapy; Z91.013 Allergy to seafood
CPT/HCPCS: 99284

== ENCOUNTER → 2020-05-22 | Outpatient (CLI) | payer OTHER ==
--- NOTE | 2020-05-22 09:48 | RADIOLOGY REPORT (SQ) ---
EXAM DESCRIPTION: MRI LT UPPER JOINT COMBO IMAGES COMPLETED DATE/TIME: 05/22/2020 8:50 am REASON FOR STUDY: (R93.7)ABNORMAL FINDINGS ON DIAGNOSTIC IMAGING OF PRT MS SYS R93.7 ABNORMAL FINDI NGS ON DIAGNOSTIC IMAGING OF PRT MS SYS COMPARISON: 05/15/2020 TECHNIQUE: Multiplanar fat and fluid sensitive sequences precontrast including T1, T2 fat saturated or STIR. Post contrast T1 fat saturated sequences after IV gadolinium administration. CONTRAST TYPE AND DOSE: 20 mL Prohance. RENAL FUNCTION: Not indicated. LIMITATIONS: None. FINDINGS: MASS SIGNAL CHARACTERISTICS: LOCATION: Proximal humeral metaphysis SIGNAL CHARACTERISTICS AND ENHANCEMENT PATTERN: The lesion is a cortically based T1 hypointense, T2 h yperintense lesion with thin sclerotic margin. Postcontrast imaging demonstrates a small amount of p eripheral enhancement No cortical breakthrough. Mild endosteal scalloping. Longitudinally positione d. MEASUREMENTS: 1.6 x 1.3 x 3.0 cm MARROW SIGNAL IN ADJACENT BONES: Normal. OTHER SIGNIFICANT BONE, JOINT OR SOFT TISSUE FINDINGS: The appearance of mild acromioclavicular arthr opathy, disc scant fluid seen within the subacromial/ subdeltoid bursa, and tendinosis of the suprasp inatus suggests a degree of impingement syndrome. Rotator cuff muscle bulk and signal is maintained. 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 No aggressive imaging features. Incident ally noted constellation of findings suggests a degree shoulder impingement syndrome. TECHNICAL DOCUMENTATION: JOB ID: [id number] [employer]- All Rights Reserved Reading location - IP/workstation name: [email or web address]
== END ==
LOC: RAD 08:00
PROVIDERS: ATTEND Orthopaedic Surgery
DX: M12.812 Other specific arthropathies, not elsewhere classified, left shoulder (principal)
CPT/HCPCS: 73223; A9576